=== PATIENT | female | born 1990 | race Caucasian/White ===

== ENCOUNTER 2020-11-18 18:26 | Emergency (ER) | payer SELFPAY ==
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
--- NOTE | 2020-11-18 20:54 | ER ---
Nurse's Notes [facility] Name: Fatimah Chris Age: 30 yrs Sex: Female : 1990 Arrival Date: 11/18/2020 Time: 18:30 Bed Waiting Private MD: Diagnosis: Presentation: 11/18 18:49 Chief complaint: Patient states: Lower abd cramping for 2 days. Clear liquid "leaking" ll1 from vaginal area for 1 week. Just found out she was last Thursday. + positive test, no follow-up yet. G 6, P2, AB 3. Coronavirus screen: Client denies travel out of the [place] in the last 14 days. At this time, the client does not indicate any symptoms associated with coronavirus-19. Ebola Screen: Patient denies travel to an Ebola-affected area in the 21 days before illness onset. Initial Sepsis Screen: Does the patient meet any 2 criteria? HR > 90 bpm. No. Patient's initial sepsis screen is negative. Does the patient have a suspected source of infection? No. Patient's initial sepsis screen is negative. Risk Assessment: Do you want to hurt yourself or someone else? Patient reports no desire to harm self or others. Onset of symptoms was November 17, 2020. 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 - Social history:: Smoking status: Patient/guardian denies using tobacco, Stopped _ months ago .25. Vital Signs: 18:49 BP 100 / 53; Pulse 93; Resp 16; Temp 97.6; Pulse Ox 99% ; Height 5 ft. 10 in. (177.80 ll1 cm); Pain 4/10; ED Course: 18:30 Patient arrived in ED. mr 18:54 Triage completed. ll1 18:56 Arm band placed on. ll1 20:54 Patient's name was called from ER lobby. No response. Unable to locate patient. Will bb disposition as left without being seen by a provider. Administered Medications: No medications were administered Outcome: 20:54 Patient left the ED. bb Signatures: Kristi Morris Brenda, RN RN bb David Borrego RN RN ll1
[2020-11-18 21:34] VITALS: BP 100/53; TEMP 97.6; O2SAT 99
== END 2020-11-18 20:54 | disposition left against medical advice (07) ==
LOC: ER 18:26
DX: Z53.21 Procedure and treatment not carried out due to patient leaving prior to being seen by health care provider (principal)
CPT/HCPCS: 99281

== ENCOUNTER 2020-11-19 11:13 | Emergency (ER) | payer OTHER, SELFPAY ==
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
[2020-11-19 12:04] LABS: Urine Blood Trace-lysed (Negative); Urine Glucose Negative (Negative); Urine Protein Negative (Negative); Urine Specific Gravity 1.025 (1.005-1.030)
[2020-11-19 13:13] LABS: Absolute Lymphocytes (CBC) 2.4 K/uL (0.7-4.9); Basophils % 0.4 % (0-1.3); Hematocrit 36.4 % (36.0-45.0); Lymphocytes % 23.8 % (15.3-44.8); MPV 7.9 fL (7.6-11.3); RBC Red Blood Cell Count 3.91 M/uL (3.86-4.86)
--- NOTE | 2020-11-19 13:18 | RAD REPORT ---
EXAM DESCRIPTION: US - 1St Trimest Single 1St Fetus - 11/19/2020 1:01 pm CLINICAL HISTORY: with pelvic pain COMPARISON: None. FINDINGS: A normal appearing gestational sac is present within the endometrium. Within this is a yo lk sac and pole with a crown-rump length 3.5 centimeters. Cardiac activity 178 beats per minute Neither ovary seen secondary to overlying bowel gas. . . The right and left adnexa unremarkable No significant free fluid is seen. IMPRESSION: Single live intrauterine with an estimated gestational age 10 weeks 3 days ED D 06/14/2021. If a survey is desired it should be performed in approximately 8 weeks
[2020-11-19 13:43] LABS: Urine Bacteria 20-50 /HPF (<20); Urine RBC <5 /HPF (NONE SEEN)
[2020-11-19 13:46] LABS: BUN Blood Urea Nitrogen 10 mg/dL (7-18); Bicarbonate 24 mmol/L (21-32); Glucose Level 83 mg/dL (74-106); HCG, Quantitative 41809 mIU/mL (1-3); Sodium Level 139 mmol/L (136-145)
[2020-11-19 14:09] LABS: Urine Blood Negative (Negative); Urine Glucose Negative (Negative); Urine Protein Negative (Negative); Urine Specific Gravity 1.025 (1.005-1.030); Urine pH 6.5 (5.0-7.0)
[2020-11-19 14:52] LABS: Urine Bacteria <20 /HPF (<20); Urine Mucus 1+ /HPF (NONE SEEN); Urine RBC <5 /HPF (NONE SEEN)
[2020-11-19 14:59] LABS: Urine Specific Gravity/Preg 1.025 (1.005-1.030)
--- NOTE | 2020-11-19 15:06 | EDPHYS ---
Physician Documentation [facility] Name: Fatimah Chris Age: 30 yrs Sex: Female : 1990 Arrival Date: 11/19/2020 Time: 11:16 Bed 28 Private MD: NEL Physician Reynaldo Frye HPI: 11/19 13:36 This 30 yrs old Female presents to ER via Ambulatory with complaints of pm1 Abdominal Pain - low. 13:36 The patient presents with abdominal pain suprapubic area. Onset: The symptoms/episode pm1 began/occurred 4 day(s) ago. The symptoms do not radiate. Associated signs and symptoms: Pertinent negatives: nausea, vomiting, and diarrhea, chest pain, dysuria, fever, shortness of breath, vaginal discharge. The symptoms are described as crampy. Modifying factors: The symptoms are alleviated by nothing, the symptoms are aggravated by nothing. Severity of pain: in the emergency department the pain is unchanged. The patient has not experienced similar symptoms in the past. The patient has not recently seen a physician. positive test last week with home test. 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 - Social history:: Smoking status: Patient reports the use of cigarette tobacco products, denies chronic smoking, but will smoke occasionally. ROS: 13:36 Constitutional: Negative for fever, chills, and weight loss, Cardiovascular: Negative pm1 for chest pain, palpitations, and edema, Respiratory: Negative for shortness of breath, cough, wheezing, and pleuritic chest pain. 13:36 Back: Negative for injury and pain, MS/Extremity: Negative for injury and deformity, Skin: Negative for injury, rash, and discoloration, Neuro: Negative for headache, weakness, numbness, tingling, and seizure. 13:36 Abdomen/GI: Positive for abdominal pain, of the suprapubic area, Negative for nausea, vomiting, and diarrhea, constipation. Exam: 13:36 Constitutional: This is a well developed, well nourished patient who is awake, alert, pm1 and in no acute distress. Head/Face: Normocephalic, atraumatic. 13:36 Back: No spinal tenderness. No costovertebral tenderness. Full range of motion. Skin: Warm, dry with normal turgor. Normal color with no rashes, no lesions, and no evidence of cellulitis. MS/ Extremity: Pulses equal, no cyanosis. Neurovascular intact. Full, normal range of motion. 13:36 Cardiovascular: Exam negative for acute changes, Rate: normal, Rhythm: regular, Pulses: no pulse deficits are appreciated. 13:36 Respiratory: Exam negative for acute changes, respiratory distress, shortness of breath. 13:36 Abdomen/GI: Inspection: abdomen appears normal, Palpation: abdomen is soft and non-tender, in all quadrants. 13:36 : Pelvic Exam: The exam is refused by the patient/guardian. The risks and consequences are understood by the patient. 13:36 Neuro: Orientation: is normal, Mentation: is normal, Motor: is normal, Sensation: is normal, no obvious gross deficits. Vital Signs: 11:31 Pulse 92; Resp 16; Temp 97.3; Pulse Ox 100% ; Height 5 ft. 10 in. (177.80 cm); Pain ll1 2/10; 11:31 BP 100 / 64; ll1 13:00 BP 125 / 96; Pulse 93; Resp 16; Pulse Ox 100% on R/A; zb 14:00 BP 102 / 74; Pulse 97; Resp 18; Pulse Ox 100% on R/A; zb 15:00 BP 103 / 67; Pulse 93; Resp 18; Pulse Ox 100% on R/A; zb MDM: 12:00 Patient medically screened. pm1 13:44 Data reviewed: vital signs. Data interpreted: Pulse oximetry: on room air is 100 %. pm1 Interpretation: normal. 15:04 Counseling: I had a detailed discussion with the patient and/or guardian regarding: the pm1 historical points, exam findings, and any diagnostic results supporting the discharge/admit diagnosis, lab results, radiology results, the need for outpatient follow up, an OB/Gyne specialist, to return to the emergency department if symptoms worsen or persist or if there are any questions or concerns that arise at home. 11/19 12:04 Order name: Urine Dipstick-Ancillary; Complete Time: 12:10 EDMS 11/19 12:10 Order name: Quantitative Hcg; Complete Time: 13:52 pm1 11/19 12:10 Order name: Abo/rh Typing pm1 11/19 12:10 Order name: Basic Metabolic Panel; Complete Time: 13:52 pm1 11/19 12:10 Order name: CBC with Diff; Complete Time: 13:22 pm1 11/19 12:10 Order name: Urine Microscopic Only; Complete Time: 13:52 pm1 11/19 12:10 Order name: Urine Test (obtain specimen); Complete Time: 13:24 pm1 11/19 12:32 Order name: Urine --Ancillary (enter results); Complete Time: 15:03 bd 11/19 13:01 Order name: 1St Trimest Single 1St Fetus; Complete Time: 13:22 EDMS 11/19 13:35 Order name: Diet Regular; Complete Time: 13:36 aa5 11/19 14:08 Order name: Urine Dipstick-Ancillary; Complete Time: 15:03 EDMS 11/19 14:09 Order name: Urine Microscopic Only pm1 11/19 14:09 Order name: Urine Microscopic Only; Complete Time: 15:03 EDMS 11/19 12:10 Order name: IV Saline Lock; Complete Time: 12:49 pm1 11/19 12:10 Order name: Labs collected and sent; Complete Time: 12:49 pm1 11/19 12:10 Order name: NPO; Complete Time: 12:27 pm1 11/19 12:10 Order name: Urine Dipstick-Ancillary (obtain specimen); Complete Time: 12:26 pm1 11/19 13:11 Order name: Labs - recollect needed: recollect type and screen, reband pt; Complete bd Time: 13:32 11/19 13:58 Order name: Labs - recollect needed: recollect abo/rh.; Complete Time: 14:10 bd 11/19 14:09 Order name: Urine Dipstick-Ancillary (obtain specimen); Complete Time: 14:10 pm1 Administered Medications: No medications were administered Disposition: 11/20 07:15 Co-signature as Attending Physician, Reynaldo SULLIVAN I agree with the assessment and jason plan of care. Disposition: 11/19/20 15:05 Discharged to Home. Impression: Unspecified abdominal pain. - Condition is Stable. - Discharge Instructions: Abdominal Pain During . - Medication Reconciliation Form, Thank You Letter, Antibiotic Education, Prescription Opioid Use form. - Follow up: Emergency Department; When: As needed; Reason: Worsening of condition. Follow up: Private Physician; When: 2 - 3 days; Reason: Recheck today's complaints, Continuance of care, Re-evaluation by your physician. - Problem is new. - Symptoms have improved. Signatures: Dispatcher [employer] EDMS Violet Knott Corey, MD MD cha Calderon, Audri RN RN aa5 Salinas Paniagua NP BEREAVEMENT PROGRAM COORDINATOR pm1 David Borrego RN RN ll1 Corrections: (The following items were deleted from the chart) 11/19 13:01 12:11 Transvaginal Ob+US.RAD.BRZ ordered. EDME EDME 15:19 15:05 11/19/2020 15:05 Discharged to Home. Impression: Unspecified abdominal pain. aa5 Condition is Stable. Forms are Medication Reconciliation Form, Thank You Letter, Antibiotic Education, Prescription Opioid Use. Follow up: Emergency Department; When: As needed; Reason: Worsening of condition. Follow up: Private Physician; When: 2 - 3 days; Reason: Recheck today's complaints, Continuance of care, Re-evaluation by your physician. Problem is new. Symptoms have improved. pm1
--- NOTE | 2020-11-19 15:06 | ER ---
Nurse's Notes [facility] Name: Fatimah Chris Age: 30 yrs Sex: Female : 1990 Arrival Date: 11/19/2020 Time: 11:16 Bed 28 Private MD: Diagnosis: Unspecified abdominal pain Presentation: 11/19 11:31 Chief complaint: Patient states: Had a positive test last week. Had lower abd ll1 discomfort since last week. No vaginal bleeding. + nausea., no fever. G6, P2. Came last night to be seen but the wait was too long, so she left. Coronavirus screen: Client denies travel out of the [place] in the last 14 days. At this time, the client does not indicate any symptoms associated with coronavirus-19. Ebola Screen: Patient denies travel to an Ebola-affected area in the 21 days before illness onset. Initial Sepsis Screen: Does the patient meet any 2 criteria? No. Patient's initial sepsis screen is negative. Does the patient have a suspected source of infection? No. Patient's initial sepsis screen is negative. Risk Assessment: Do you want to hurt yourself or someone else? Patient reports no desire to harm self or others. Onset of symptoms was November 15, 2020. 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 - Social history:: Smoking status: Patient reports the use of cigarette tobacco products, denies chronic smoking, but will smoke occasionally. Screenin:29 Abuse screen: Denies threats or abuse. Denies injuries from another. Nutritional zb screening: No deficits noted. Tuberculosis screening: No symptoms or risk factors identified. Fall Risk None identified. Assessment: 12:49 Reassessment: patient taken to US. zb 13:00 General: Appears in no apparent distress. comfortable, Behavior is calm, cooperative, zb appropriate for age, Reports. Pain: Complains of pain in left femoral area Pain does not radiate. Pain currently is 3 out of 10 on a pain scale. Quality of pain is described as crampy, Pain began 1 day ago. Is continuous, Also complains of nausea. Neuro: Level of Consciousness is awake, alert, obeys commands, Oriented to person, place, time, situation. Cardiovascular: Heart tones S1 S2 present Capillary refill < 3 seconds Patient's skin is warm and dry. Respiratory: Airway is patent Respiratory effort is even, unlabored, Respiratory pattern is regular, symmetrical. GI: Abdomen is round Bowel sounds present X 4 quads. Abdomen is tender to palpation in left lower quadrant Reports nausea. : Urine is clear. Derm: Skin is intact, is healthy with good turgor, Skin is normal. Musculoskeletal: Range of motion: intact in all extremities. 13:24 Reassessment: ecp at bedside. discussing care with patient. zb 13:38 Reassessment: pt provided food. verbally order okay'ed by ECP for patient to eat. zb 14:11 Reassessment: Patient appears in no apparent distress at this time. Patient and/or zb family updated on plan of care and expected duration. Pain level reassessed. Patient is alert, oriented x 3, equal unlabored respirations, skin warm/dry/pink. urine recollected and ran. ECP discussed care at bedside. 14:28 Reassessment: Lab recollected for the 3rd time due to a label smudging issue via sr5 existing PIV, new T\T\S bracelet applied. Pt remains awake, alert, denies any needs at this time. 15:10 Reassessment: d/c instructions given. family at bedside. pt up at will. states she is zb ready to go home. ECP at bedside to give d/c instructions as well. Vital Signs: 11:31 Pulse 92; Resp 16; Temp 97.3; Pulse Ox 100% ; Height 5 ft. 10 in. (177.80 cm); Pain ll1 2/10; 11:31 BP 100 / 64; ll1 13:00 BP 125 / 96; Pulse 93; Resp 16; Pulse Ox 100% on R/A; zb 14:00 BP 102 / 74; Pulse 97; Resp 18; Pulse Ox 100% on R/A; zb 15:00 BP 103 / 67; Pulse 93; Resp 18; Pulse Ox 100% on R/A; zb ED Course: 11:16 Patient arrived in ED. am2 11:21 Arm band placed on. ll1 11:33 Triage completed. ll1 12:00 Salinas Paniagua NP is PHCP. pm1 12:00 Reynaldo Frye MD is Attending Physician. pm1 12:13 Radiology exam delayed due to lab results not completed at this time. test aa4 not completed at this time. 12:26 Kandi Lozano, RN is Primary Nurse. zb 12:29 Patient has correct armband on for positive identification. Placed in gown. Bed in low zb position. Call light in reach. Side rails up X 1. Pulse ox on. NIBP on. Door closed. Noise minimized. 12:49 Inserted saline lock: 20 gauge in right antecubital area, using aseptic technique. zb Blood collected. 13:01 1St Trimest Single 1St Fetus In Process Unspecified. EDMS 15:10 No provider procedures requiring assistance completed. IV discontinued, intact, zb bleeding controlled, No redness/swelling at site. Pressure dressing applied. Administered Medications: No medications were administered Outcome: 15:05 Discharge ordered by . pm1 15:10 Discharged to home ambulatory. zb 15:10 Condition: stable 15:10 Discharge instructions given to patient, Instructed on discharge instructions, follow up and referral plans. medication usage, Demonstrated understanding of instructions, follow-up care. 15:19 Patient left the ED. aa5 Signatures: Dispatcher [employer] EDMS Sharee Malcolm aa4 Yolanda Gonzales, RN RN aa5 Salinas Paniagua NP PLASTER TENDER pm1 Ismael Lebron RN RN sr5 Sharee Ivy am2 David Borrego, RN RN ll1 Kandi Lozano RN RN zyolanda Corrections: (The following items were deleted from the chart) 11:34 11:31 Chief complaint: Patient states: Had a positive test last week. Had ll1 lower abd discomfort since last week. No vaginal bleeding. + nausea., no fever. G6, P2. ll1
[2020-11-19 15:24] VITALS: TEMP 97.3; O2SAT 100
[2020-11-19 15:26] VITALS: BP 102/74
== END 2020-11-19 15:19 | disposition home or self-care (01) ==
LOC: ER 11:13
DX: O26.891 Other specified pregnancy related conditions, first trimester (principal); Z3A.10 10 weeks gestation of pregnancy; Z91.040 Latex allergy status; Z91.048 Other nonmedicinal substance allergy status
CPT/HCPCS: 36415; 76801; 80048; 81003; 81015; 81025; 84702; 85025; 86900; 86901; 99284

== ENCOUNTER 2021-06-23 17:24 | Emergency (ER) | payer OTHER ==
--- OUTSIDE RECORDS SUMMARY | 2021-06-23 17:29 | XMS REPORT | Continuity of Care Document ---
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 certified under the CLIA thatmeet the re quirements to perform mode rate, high or waivedcomple xity tests. This kristel t is authorized for use at thePoint of Car e (POC), i.e., in patien t care settingsoperati ng under a CLIA Certificat e of Waiver, Certifi trinidad ofCompliance, o r Certificate of Accreditation. This test is only authori corrine for the duration of thedeclaration that circumstances e xist justifying theauthorizatio n of emergency use o f in vitro diagnostic test sfor detection and/o r diagnosis of CO VID-19 under Amnhozx75 4(b)(1) of the Act, 21 U.S .C. 360bbb-3(b)(1), unless theauthorizatio n is terminated or r evoked sooner. URINALYSIS W/O [id number] 13:39:00 Test Item Value Reference Range Interpretation Comments UA GLUCOSE DIPSTICK (test code = NEGATIVE NEGATIVE DGLUU) UA KETONE DIPSTICK (test code = TRACE NEGATIVE KETU) UA PROTEIN DIPSTICK (test code = 1+ NEGATIVE PROU) IS NURSE PERFORMING TEST? NCBC W/AUTO [id number] 13:36:00 Test Item Value Reference Range Interpretation Comments WHITE BLOOD CELL (test code = WBC) 14.4 K/mm3 6.5-12.3 H RED BLOOD CELL (test code = RBC) 3.07 M/mm3 3.51-4.69 L HEMOGLOBIN (test code = HGB) 9.7 g/dL 10.1-13.8 L HEMATOCRIT (test code = HCT) 28.8 % 32.5-41.8 L MEAN CELL VOLUME (test code = MCV) 93.8 fL 84.6-96.6 N MEAN CELL HGB (test code = MCH) 31.6 pg 27.3-33.9 N MEAN CELL HGB CONCETRATION (test 33.7 gm/dL 32.0-34.2 N code = MCHC) RED CELL DISTRIBUTION WIDTH (test 13.7 % 12.2-16.3 N code = RDW) PLATELET COUNT (test code = PLT) 265 K/mm3 134-363 N MEAN PLATELET VOLUME (test code = 10.1 fL 9.2-12.7 N MPV) NEUTROPHIL % (test code = NT%) 74.4 % 57.9-77.3 N LYMPHOCYTE % (test code = LY%) 16.9 % 14.5-29.7 N MONOCYTE % (test code = MO%) 5.3 % 3.6-10.2 N EOSINOPHIL % (test code = EO%) 0.6 % 0.0-3.0 N BASOPHIL % (test code = BA%) 0.6 % 0.1-0.9 N NEUTROPHIL # (test code = NT#) 10.7 K/mm3 LYMPHOCYTE # (test code = LY#) 2.4 K/mm3 MONOCYTE # (test code = MO#) 0.8 K/mm3 EOSINOPHIL # (test code = EO#) 0.09 K/mm3 BASOPHIL # (test code = BA#) 0.1 K/mm3 RBC MORPHOLOGY REQUIRED (test code NORMAL NORMAL = RBCM) PLATELET MORPHOLOGY REQUIRED (test NORMAL NORMAL code = PLTMR) URINALYSIS [id number] 16:46:00 Test Item Value Reference Range Interpretation Comments UA COLOR (test code = YELLOW YELLOW COLU) UA APPEARANCE (test CLOUDY CLEAR A code = APPU) UA GLUCOSE DIPSTICK NEGATIVE NEGATIVE (test code = DGLUU) UA BILIRUBIN DIPSTICK NEGATIVE NEGATIVE (test code = BILU) UA KETONE DIPSTICK NEGATIVE NEGATIVE (test code = KETU) UA SPECIFIC GRAVITY >= 1.030 1.001-1.035 N (test code = SGU) UA BLOOD DIPSTICK NEG NEGATIVE (test code = FLOYD) UA PH DIPSTICK (test 6.0 5-9 code = BLAZE) UA PROTEIN DIPSTICK 1+ NEGATIVE (test code = PROU) UA UROBILINIOGEN 0.2 EU/dL See_Comment [Automated message] DIPSTICK (test code = The sy stem which URO) generated this result transmit richard reference range : <=1.0. The refe rence range was not u sed to interpret th is result as normal/abnormal . UA NITRITE DIPSTICK NEGATIVE NEGATIVE (test code = JANICE) UA LEUKOCYTE ESTERASE 1+ NEGATIVE A DIPSTICK (test code = LEUU) UA WBC (test code = 21-30 #/hpf NONE SEEN A WBCU) UA RBC (test code = 3-5 #/hpf NONE SEEN A RBCU) UA EPITHELIAL CELLS RARE #/HPF RARE-FEW (test code = EPIU) UA BACTERIA (test code FEW /HPF RARE-FEW = BACU) UA MUCUS (test code = 4+ NONE SEEN MUCU) URINE SAMPLE: CLEAN CATCHURINALYSIS [id number] 23:24:00 Test Item Value Reference Range Interpretation Comments UA COLOR (test code = COLU) YELLOW YELLOW UA APPEARANCE (test code = Slightly-Cloudy CLEAR APPU) UA GLUCOSE DIPSTICK (test NEGATIVE NEG code = DGLUU) UA BILIRUBIN DIPSTICK (test NEGATIVE NEG code = BILU) UA KETONE DIPSTICK (test code NEGATIVE NEG = KETU) UA SPECIFIC GRAVITY (test 1.026 1.001-1.035 N code = SGU) UA BLOOD DIPSTICK (test code NEG NEG = FLOYD) UA PH DIPSTICK (test code = 5.0 5-9 BLAZE) UA PROTEIN DIPSTICK (test NEGATIVE NEG code = PROU) UA UROBILINIOGEN DIPSTICK NEGATIVE mg/dL NEG (test code = URO) UA NITRITE DIPSTICK (test NEG NEG code = JANICE) UA LEUKOCYTE ESTERASE 1+ NEG A DIPSTICK (test code = LEUU) UA WBC (test code = WBCU) 6-10 #/hpf NONE SEEN A UA RBC (test code = RBCU) 3-5 #/hpf NONE SEEN A UA EPITHELIAL CELLS (test FEW #/HPF RARE-FEW code = EPIU) UA BACTERIA (test code = RARE /HPF RARE-FEW BACU) UA MUCUS (test code = MUCU) 1+ NONE SEEN URINE SAMPLE: CLEAN CATCHCOMPREHENSIVE METABOLIC [id number] 21:12:00 Test Item Value Reference Range Interpretation Comments SODIUM (test code = NA) 138 mEq/L 135-145 N POTASSIUM (test code = K) 4.4 mEq/L 3.5-5.0 N CHLORIDE (test code = CL) 104 mEq/L 100-115 N CARBON DIOXIDE (test code = CO2) 24 mEq/L 22-31 N ANION GAP (test code = GAP) 14.50 10-20 N GLUCOSE (test code = GLU) 78 mg/dL 65-110 N BLOOD UREA NITROGEN (test code = 9 mg/dL 7-18 N BUN) GLOMERULAR FILTRATION RATE (test 118 ml/min >60 N code = GFR) CREATININE (test code = CREAT) 0.6 mg/dL 0.5-1.0 N TOTAL PROTEIN (test code = PROT) 6.3 gm/dL 6.3-8.2 N ALBUMIN (test code = ALB) 3.2 gm/dL 3.4-4.8 L CALCIUM (test code = CA) 8.3 mg/dL 8.4-10.2 L BILIRUBIN TOTAL (test code = BILT) 0.1 mg/dL 0.2-1.0 L SGOT/AST (test code = AST) 13 units/L 15-37 L SGPT/ALT (test code = ALT) 9 units/L 12-78 L ALKALINE PHOSPHATASE TOTAL (test 86 units/L 46-116 N code = ALKP) CBC W/AUTO [id number] 20:24:00 Test Item Value Reference Range Interpretation Comments WHITE BLOOD CELL (test code = WBC) 18.8 K/mm3 6.5-12.3 H RED BLOOD CELL (test code = RBC) 3.53 M/mm3 3.51-4.69 N HEMOGLOBIN (test code = HGB) 11.1 g/dL 10.1-13.8 N HEMATOCRIT (test code = HCT) 33.9 % 32.5-41.8 N MEAN CELL VOLUME (test code = MCV) 96.0 fL 84.6-96.6 N MEAN CELL HGB (test code = MCH) 31.4 pg 27.3-33.9 N MEAN CELL HGB CONCETRATION (test 32.7 gm/dL 32.0-34.2 N code = MCHC) RED CELL DISTRIBUTION WIDTH (test 12.9 % 12.2-16.3 N code = RDW) PLATELET COUNT (test code = PLT) 251 K/mm3 134-363 N MEAN PLATELET VOLUME (test code = 9.7 fL 9.2-12.7 N MPV) NEUTROPHIL % (test code = NT%) 79.0 % 57.9-77.3 H LYMPHOCYTE % (test code = LY%) 15.4 % 14.5-29.7 N MONOCYTE % (test code = MO%) 3.8 % 3.6-10.2 N EOSINOPHIL % (test code = EO%) 0.4 % 0.0-3.0 N BASOPHIL % (test code = BA%) 0.4 % 0.1-0.9 N NEUTROPHIL # (test code = NT#) 14.8 K/mm3 LYMPHOCYTE # (test code = LY#) 2.9 K/mm3 MONOCYTE # (test code = MO#) 0.7 K/mm3 EOSINOPHIL # (test code = EO#) 0.07 K/mm3 BASOPHIL # (test code = BA#) 0.1 K/mm3 RBC MORPHOLOGY REQUIRED (test code NORMAL NORMAL = RBCM) PLATELET MORPHOLOGY REQUIRED (test NORMAL NORMAL code = PLTMR) URINALYSIS [id number] 20:22:00 Test Item Value Reference Range Interpretation Comments UA COLOR (test code = COLU) YELLOW YELLOW UA APPEARANCE (test code = CLEAR CLEAR APPU) UA GLUCOSE DIPSTICK (test code NEGATIVE NEG = DGLUU) UA BILIRUBIN DIPSTICK (test NEGATIVE NEG code = BILU) UA KETONE DIPSTICK (test code 2+ NEG A = KETU) UA SPECIFIC GRAVITY (test code 1.019 1.001-1.035 N = SGU) UA BLOOD DIPSTICK (test code = NEG NEG FLOYD) UA PH DIPSTICK (test code = 7.0 5-9 BLAZE) UA PROTEIN DIPSTICK (test code NEGATIVE NEG = PROU) UA UROBILINIOGEN DIPSTICK NEGATIVE mg/dL NEG (test code = URO) UA NITRITE DIPSTICK (test code NEG NEG = JANICE) UA LEUKOCYTE ESTERASE DIPSTICK NEG NEG (test code = LEUU) UA WBC (test code = WBCU) 0-2 #/hpf NONE SEEN UA RBC (test code = RBCU) 0-2 #/hpf NONE SEEN UA EPITHELIAL CELLS (test code RARE #/HPF RARE-FEW = EPIU) UA MUCUS (test code = MUCU) 2+ NONE SEEN URINE SAMPLE: CLEAN CATCH- US [id number] 00:00:00 [facility] 1990 Sex: F Patient Name: MAIRA ELLIS Unit No: [id number] EXAMS: CPT CODE: [id number] [place] LTD 64034 PROCEDURE INFORMATION: Exam: US , Limited Exam date and time: 02/28/2021 8:20 PM Age: 31 years old Clinical indication: Injury or trauma; Fall; Blunt trauma;Other: PT fell on her bottom; Injury date: Today; ; Additional info: Lower ab pain, 24.6wks, recent fall. Amniotic fluid index, placenta, cervix. TECHNIQUE: Imaging protocol: Real-time ultrasound of the maternal uterus with image documentation. Exam focused on the clinical indication. COMPARISON: OT US LTD 02/04/2021 8:53 PM FINDINGS: Limited transabdominal ultrasound was performed. No transvaginal imaging. Gestation: Single intrauterine gestation heart rate: 130 bpm Placenta: Anterior grade 2 placenta is seen without previa appreciated. No placental abruption identified. Amniotic fluid index: 16.3 cm MATERNAL: Cervix: Cervix measures 4.2 cm length. Right adnexa: Maternal right ovary measures 3.5 x 2.2 x 2.6 cm containing round hypoechoic cystic appearing structure measuring 2.1 x 1.4 x 2.1 cm likely representing corpus luteum. Left adnexa: Maternal left ovary appears normal measuring 3 x 1.7 x 1.7 cm. IMPRESSION: 1. Single live intrauterine . 2. Amniotic fluid index of 16.3 cm. 3. Cervical length of 4.2 cm. Electronically Signed by Mao Schmidt MD on 0 02/28/2021 at 2100 Reported and signed by: Mao Schmidt MD CC: Vaibhav Shelby III, MD; Douglas Zimmer Technologist: Paige Betancourt RDMS, RVT Probe: Trnscrbd D/ (2099) GCD.CPS Orig Print D/T: S: 02/28/2021 (2100) [facility] NAME: MAIRA ELLIS Radiology Department PHYS: Vaibhav Arora III, MD [address] : 1990 AGE: 31 SEX: F [place] [address] LOC: Katt.VICENTE PHONE #: [phone] EXAM DATE: 02/28/2021 STATUS: REG ER FAX #: [phone] RAD NO: Page 1 Signed Report Patient Name: MAIRA ELLIS Unit No: [id number] EXAMS: CPT CODE: [id number] LTD 04893 <Continued> [facility] NAME: MAIRA ELLIS Radiology Department PHYS: Vaibhav Arora III, MD [address] : 1990 AGE: 31SEX: F [place] [address] LOC: Katt.VICENTE PHONE #: [phone] EXAM DATE: 02/28/2021 STATUS: REG ER FAX #: [phone] RAD NO: Page 2 Signed ReportURINALYSIS [id number] 20:02:00 Test Item Value Reference Range Interpretation Comments UA COLOR (test code = COLU) YELLOW YELLOW UA APPEARANCE (test code = Slightly-Cloudy CLEAR APPU) UA GLUCOSE DIPSTICK (test NEGATIVE NEG code = DGLUU) UA BILIRUBIN DIPSTICK (test NEGATIVE NEG code = BILU) UA KETONE DIPSTICK (test code NEGATIVE NEG = KETU) UA SPECIFIC GRAVITY (test 1.026 1.001-1.035 N code = SGU) UA BLOOD DIPSTICK (test code NEG NEG = FLOYD) UA PH DIPSTICK (test code = 5.0 5-9 BLAZE) UA PROTEIN DIPSTICK (test NEGATIVE NEG code = PROU) UA UROBILINIOGEN DIPSTICK NEGATIVE mg/dL NEG (test code = URO) UA NITRITE DIPSTICK (test NEG NEG code = JANICE) UA LEUKOCYTE ESTERASE 3+ NEG A DIPSTICK (test code = LEUU) UA WBC (test code = WBCU) 6-10 #/hpf NONE SEEN A UA RBC (test code = RBCU) 0-2 #/hpf NONE SEEN UA EPITHELIAL CELLS (test FEW #/HPF RARE-FEW code = EPIU) UA BACTERIA (test code = RARE /HPF RARE-FEW BACU) UA MUCUS (test code = MUCU) 1+ NONE SEEN URINE SAMPLE: CLEAN CATCH- US [id number] 00:00:00 [facility] 1990 Sex: F Patient Name: MAIRA ELLIS Unit No: [id number] EXAMS: CPT CODE: [id number] [place] LTD [address]109 PROCEDURE INFORMATION: Exam: US , Limited Exam date and time: 02/04/2021 8:53 PM Age: 31 years old Clinical indication: Lmp or gestational age (in weeks): 21.6; Antepartum complications; Premature rupture of membranes; ; Additional info: Saundra TECHNIQUE: Imaging protocol: Real-time ultrasound of the maternal uterus with image doc umentation. Exam focused on the clinical indication. COMPARISON: No relevant prior studies available. FINDINGS: Gestation: Intrauterine gestation. presentation: There is a single live intrauterine gestation in variable presentation. heart rate: The heart rate is150 bpm. Placenta: There is a grade 1 anterior placenta. There is no placenta previa or placental abruption. Amniotic fluid: The amniotic fluid appears subjectively normal with a single deep vertical pocket measuring 6.3 cm. MATERNAL: Cervix: The uterine cervix is closed and the cervical length is 3.4 cm. Other findings: The right maternal ovary is obscured due to shadowing. The left maternal ovary is obscured due to shadowing. IMPRESSION: 1. There is a single liveintrauterine gestation in variable presentation. 2. There is a grade 1 anterior placenta. There is no placenta previa or placental abruption. 3. The amniotic fluid appears subjectively normal with a single deep vertical pocket measuring 6.3 cm. 4. The uterine cervix is closed and the cervical length is 3.4 cm. at 2127 Reported and signed by: Tamir Oliveira DO CC: Vaibhav Shelby III, MD; Douglas Zimmer Technologist: Denice Mitchell RDMS RVLupe Probe: Trnscrbd D/ (2126) D[facility] NAME: MAIRA ELLIS Radiology Department PHYS: Vaibhav Arora III, MD [address] : 1990 AGE: 31 SEX: F [place] [address] LOC: ChuckVICENTE PHONE #: [phone] EXAM DATE:02/04/2021 STATUS: REG ER FAX #: [phone] RAD NO: Page 1 Signed Report Patient Name: MAIRA ELLIS Unit No: [id number] EXAMS: CPT CODE: [id number] LTD 57153 <Continued> [facility] NAME: ANTONIO ELLISMICHELLE Mendez Radiology Department PHYS: Vaibhav Arora III, MD [address] : 1990 AGE: 31 SEX: F [place] [address] LOC: ChuckVICENTE PHONE #: [phone] EXAM DATE: 02/04/2021 STATUS: REGER FAX #: [phone] RAD NO: Page 2 Signed ReportECG 12 [id number] 18:50:32 Test Item Value Reference Range Interpretation Comments Ventricular rate (test code = 253) Atrial rate (test code = 255) SC interval (test code = 266) QRSD interval (test code = 260) QT interval (test code = 264) QTC interval (test code = 265) P axis 1 (test code = 267) QRS axis 1 (test code = 268) T wave axis (test code = 270) EKG impression (test Sinus rhythm with code = 273) short SC-Otherwise normal ECG-No previous ECGs available-Electronica lly Signed By Jeramie Nina MD ([id number]) on 07/30/2020 12:50:32 PM [facility] [id number] 16:43:49 Test Item Value Reference Range Interpretation Comments Urine culture Mixed lyric Specimen isolate (test 10-4 col/cc InformationSpe cimen code = 44150-9) Source: Urin eSpecimen Site: Clean cat [facility] ED Preliminary Interpretation - Not an [id number] 12:04:21Alysha Lucas MD 07/29/2020 7:57 [facility] ED Preliminary Interpretation - Not an OrderPerformed by: Alysha Lucas MDAuthorized by: Alysha Lucas MD ECG reviewed by ED Physician in the absence of a electronic organ technician: yes Previous ECG: Previous ECG: UnavailableInterpretation: Interpretation: normal Rate: ECG rate: 88 ECG rate assessment: normal Rhythm: Rhythm: sinus rhythm Ectopy: Ectopy: none QRS: QRS axis: NormalConduction: Conduction: normal ST segments: ST segments: NormalT waves: T waves: [facility] 2020-05-11 15:53:00Amber *ABN*(05/11/20 10:53 AM)[facility] AND STOOL 2020-05-11 15:53:00Cloudy *ABN*(05/11/20 10:53 AM)[facility] AND [id number] 15:53:00 Test Item Value Reference Range Interpretation Comments POC UA SG (test code = POC UA SG) 1.025 1 [facility] AND [id number] 15:53:00 Test Item Value Reference Range Interpretation Comments POC UA pH (test code = POC UA pH) 5.5 1 5.0-8.0 [facility] [id number] 15:53:00Negative *NA*(05/11/20 10:53 AM)[facility] [id number] 15:53:00Small *ABN*(05/11/20 10:53 AM)[facility] [id number] 15:53:000.2[facility] [id number] 15:53:00Positive *ABN*(05/11/20 10:53 AM)[facility] URINE AND [id number] 15:53:00Small *ABN*(05/11/20 10:53 AM)[facility] URINE AND [id number] 15:53:00Amber *ABN*(05/11/20 10:53 AM)[facility] URINE AND [id number] 15:53:00Cloudy *ABN*(05/11/20 10:53 AM)[facility] [id number] 15:53:00 Test Item Value Reference Range Interpretation Comments POC UA SG (test code = POC UA SG) 1.025 1 [facility] [id number] 15:53:00 Test Item Value Reference Range Interpretation Comments POC UA pH (test code = POC UA pH) 5.5 1 5.0-8.0 [facility] [id number] 15:53:00Negative *NA*(05/11/20 10:53 AM)[facility] [id number] 15:53:00Small *ABN*(05/11/20 10:53 AM)[facility] [id number] 15:53:000.2[facility] [id number] 15:53:00Positive *ABN*(05/11/20 10:53 AM)[facility] URINE AND [id number] 15:53:00Small *ABN*(05/11/20 10:53 AM)[facility] Chemistry - [id number] 11:16:00 Test Item Value Reference Range Interpretation Comments Chemistry - Specials Negative NEGATIVE Method of sensitivity- (test code = BHCGST) Indete rminant: results should be repeated after 48-72 hrs Positive: results may be detected as ear ly as 1 day after the first missed menses. Laboratory [id number] 10:40:00[facility] [id number] 09:24:001.1[facility] [id number] 09:24:008[facility] [id number] 09:24:0011.6 [facility] [id number] 09:24:003.4[facility]ann[facility] PANEL 2014-11-02 09:24:0091[facility]ann[facility] [id number] 09:24:0081[facility] [id number] 09:24:0016[facility]annCHE[facility] [id number] 09:24:000.2[facility] [id number] 09:24:99862Uemjbizg HermannCHEM [id number] 09:24:003.6[facility]annCHE[facility] [id number] 09:24:003.8 [facility] [id number] 09:24:007.2[facility]annCHEM PANEL 2014-11-02 09:24:008.9[facility]annCHE[facility] [id number] 09:24:0025[facility]annCHEM [id number] 09:24:0010[facility]annCHEM [id number] 09:24:007[facility]annCHE[facility] [id number] 09:24:0085[facility]annCHE[facility] [id number] 09:24:30534Hrucfqap HermannCHEM [id number] 09:24:000.9 Memorial VlzudavWPCJLDSLWR9354-94-07 09:24:000.0[facility]annHEMATOLOGY 2014-11-02 09:24:000.1[facility] CvvjeraIWSJIFREBZ1237-95-08 09:24:002.8[facility] KrqtqvwXIVKFRDAJT6461-52-91 09:24:000.5[facility] EfdvotqSWZSAEYAGL9986-22-24 09:24:000.6[facility] PjckchhQVFREGCQGR0566-60-97 09:24:009.1[facility] [id number] 09:24:000.3[facility] KtyidymDRYYVXZWLX1280-02-16 09:24:004.0 Memorial QmienygVLWAPCUHZN3675-71-19 09:24:0072.4[facility] HermannHEMATOLOGY 2014-11-02 09:24:0022.7[facility]orial TnzsjqxQVXLHVBXKD3959-56-65 09:24:0039.6[facility] NtxslqwLYYOKPYXFI1987-16-74 09:24:0013.2[facility] UwxgjxdFVIMCXDJAA7600-32-95 09:24:004.09[facility] QnogmzpTIMBSUHLWX1315-60-11 09:24:0012.5[facility] [id number] 09:24:0033.3[facility] RohrzipLBYHRGGBSB3049-12-13 09:24:00 96.8Memorial OlsuedhRQVECPFRTL2873-29-34 09:24:07769Orasjftn HermannHEMATOLOGY 2014-11-02 09:24:0014.1[facility]orial SvohqxeFOPREHKYNB6057-49-69 09:24:00 Test Item Value Reference Range Interpretation Comments MCH (test code = MCH) 32.3 pg 27.0-31.0 Memorial EnvvknvPWRFQSMGTI8292-50-46 09:24:008.2[facility] HermannIMMUNOLOGY 2014-11-02 09:24:00Negative (11/02/14 4:24 AM)[facility] JyabsriZRPMTUYAUA2257-67-35 09:24:00Negative *NA*(11/02/14 4:24 AM)[facility] [id number] 09:24:00Negative *NA*(11/02/14 4:24 AM)[facility] [id number] 09:24:00Negative (11/02/14 4:24 AM)[facility] [id number] 09:24:00Yellow *NA*(11/02/14 4:24 AM)[facility] [id number] 09:24:007.0[facility] [id number] 09:24:001.022[facility] [id number] 09:24:00Slight *ABN*(11/02/14 4:24 AM)[facility] [id number] 09:24:00Negative (11/02/14 4:24 AM)[facility] [id number] 09:24:002.0[facility] STOOL 2014-11-02 09:24:00Negative (11/02/14 4:24 AM)[facility] [id number] 09:24:00Negative (11/02/14 4:24 AM)[facility] [id number] 09:24:00Negative *NA*(11/02/14 4:24 AM)[facility] [id number] 09:24:00Negative (11/02/14 4:24 AM)[facility] [id number] 09:24:00Yellow *NA*(11/02/14 4:24 AM)[facility] [id number] 09:24:007.0[facility] [id number] 09:24:001.022[facility] [id number] 09:24:00Slight *ABN*(11/02/14 4:24 AM)[facility] [id number] 09:24:00Negative (11/02/14 4:24 AM)[facility] [id number] 09:24:002.0[facility] STOOL 2014-11-02 09:24:00Negative (11/02/14 4:24 AM)[facility] [id number] 09:24:00Negative (4/9/15 4:24 AM)[facility]annCHEM [id number] 09:24:00 1.1[facility]annCHEM [id number] 09:24:008[facility]annCHEM PANEL 2014-11-02 09:24:0011.6[facility]annCHE[facility] [id number] 09:24:003.4[facility]annCHEM [id number] 09:24:0091[facility]annCHE[facility] [id number] 09:24:0081[facility]annCHE[facility] [id number] 09:24:0016[facility]annCHEM [id number] 09:24:000.2[facility]annCHE[facility] [id number] 09:24:61106 [facility]annCHE[facility] [id number] 09:24:003.6[facility]annCHEM PANEL 2014-11-02 09:24:003.8[facility]annCHEM [id number] 09:24:007.2[facility]annCHE[facility] RRUDR5153-25-00 09:24:008.9[facility]annCHEM [id number] 09:24:0025[facility]annCHE[facility] [id number] 09:24:0010[facility]annCHE[facility] [id number] 09:24:007[facility] HermannCHEM [id number] 09:24:0085[facility] HermannCHEM MRIAN9747-44-13 09:24:34535Aomtoymj HermannCHEM XMJFX8151-97-09 09:24:000.9[facility] KrzwgjaYTEOFQNPBH6883-19-99 09:24:000.0[facility] MYLQLHOHSK1719-67-15 09:24:000.1[facility] KggnmhkKOQNVYPMFQ3825-31-72 09:24:002.8 [facility] EcnnjwrHUWRZJBWVT0445-20-44 09:24:000.5[facility] HermannHEMATOLOGY 2014-11-02 09:24:000.6[facility] GxlmbucPCBWGJDVKQ4572-09-49 09:24:009.1[facility] LpxgrcuFQPIFOMVRM7030-50-15 09:24:000.3[facility] LwrhwgcRDVUOERTGT1049-34-76 09:24:004.0[facility] UjhwqnsMFLYBTXLLE6359-73-24 09:24:0072.4[facility] ZKAVEEBIIE4997-57-07 09:24:0022.7[facility] DgghihfUUTUUJELHW7825-02-13 09:24:00 39.6[facility] XfzsedfGXKVYKNBAU5530-17-85 09:24:0013.2[facility] HermannHEMATOLOGY 2014-11-02 09:24:004.09[facility] SvbyqedVJIPWWHBIT0633-75-38 09:24:0012.5[facility] CwjthxnZALISEWKIT7885-34-69 09:24:0033.3[facility] NyjpddoGRWNCTAWVX1248-65-65 09:24:0096.8[facility] ZrlmeqmBIPMETCWHT2452-94-65 09:24:78504Emccmequ Andreas XFNYLXCUBD8655-64-37 09:24:0014.1[facility] LvpwrluKIHHJOGRIV3612-26-06 09:24:00 Test Item Value Reference Range Interpretation Comments MCH (test code = MCH) 32.3 pg 27.0-31.0 [facility] OvxlpawWGDOCONRPI7509-63-20 09:24:008.2[facility] HermannIMMUNOLOGY 2014-11-02 09:24:00Negative (11/02/14 4:24 AM)[facility] UpmtcqgZBDJCTGQSO3760-97-04 09:24:00Negative *NA*(11/02/14 4:24 AM)[facility]
--- NOTE | 2021-06-23 18:01 | ER ---
Nurse's Notes [facility] Name: Fatimah Chris Age: 31 yrs Sex: Female : 1990 Arrival Date: 06/23/2021 Time: 17:26 Bed 17 Private MD: Diagnosis: Local infection of the skin and subcutaneous tissue, unspecified-surgical incision Presentation: 06/23 17:42 Chief complaint: Patient states: I had a on the and it's infected. There iw is an odor and pus coming out. Coronavirus screen: Vaccine status: Patient reports being unvaccinated. Ebola Screen: Patient negative for fever greater than or equal to 101.5 degrees Fahrenheit, and additional compatible Ebola Virus Disease symptoms Patient denies exposure to infectious person. Patient denies travel to an Ebola-affected area in the 21 days before illness onset. No symptoms or risks identified at this time. Initial Sepsis Screen: Does the patient meet any 2 criteria? No. Patient's initial sepsis screen is negative. Does the patient have a suspected source of infection? No. Patient's initial sepsis screen is negative. Risk Assessment: Do you want to hurt yourself or someone else? Patient reports no desire to harm self or others. Onset of symptoms was June 23, 2021. 17:42 Method Of Arrival: Ambulatory iw 17:42 Acuity: BRUNA 3 iw Triage Assessment: 17:40 General: Appears in no apparent distress. comfortable, Behavior is calm, cooperative. iw Pain: Complains of pain in suprapubic area Pain currently is 5 out of 10 on a pain scale. 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 - Social history:: Smoking status: Patient denies any tobacco usage or history of. Screenin:14 Abuse screen: Denies threats or abuse. Nutritional screening: No deficits noted. sl2 Tuberculosis screening: No symptoms or risk factors identified. 18:23 Fall Risk None identified. sl2 Assessment: 18:14 General: Appears in no apparent distress. well groomed, well developed, Behavior is sl2 calm, cooperative, appropriate for age. Pain: Denies pain. Derm: Abscess located on abdomen and suprapubic area Reports. Vital Signs: 17:42 BP 146 / 80; Pulse 82; Resp 18; Temp 97.3; Pulse Ox 99% ; Weight 86.18 kg; Height 5 ft. iw 10 in. (177.80 cm); Pain 5/10; 17:42 Body Mass Index 27.26 (86.18 kg, 177.80 cm) iw ED Course: 17:26 Patient arrived in ED. as 17:43 Triage completed. iw 17:43 Arm band placed on left wrist. iw 17:46 Maria Guadalupe Rock FNP-C is PHCP. kb 17:47 Ronna Jacome MD is Attending Physician. kb 18:00 Jackie Humphries RN is Primary Nurse. sl2 18:00 Wound culture swab sent to lab. sl2 18:12 Wound Culture Sent. sl2 18:14 Patient has correct armband on for positive identification. sl2 18:14 No provider procedures requiring assistance completed. sl2 18:23 Patient did not have IV access during this emergency room visit. sl2 Administered Medications: 17:58 Drug: Augmentin (Amoxicillin-Clavulanate) 875 mg Route: PO; sl2 Outcome: 18:00 Discharge ordered by . kb 18:22 Discharged to home ambulatory. sl2 18:22 Condition: stable 18:22 Discharge instructions given to patient, Instructed on discharge instructions, follow up and referral plans. medication usage, Demonstrated understanding of instructions, follow-up care, medications, Prescriptions given X 2. 18:24 Patient left the ED. sl2 Addendum: 06/26/2021 09:11 Addendum: Culture Results: Positive wound culture. Bacteria is resistant to, has s s intermediate sensitivity, or is not tested against prescribed antibiotics. Report given to JESSICA for further evaluation and then to it architect for follow up with patient. 06/29/2021 12:27 Addendum: Other No answer. Unable to leave VM. Given to ED director to send certified s s letter to address on file. 12:37 Addendum: Other Pt called back. States that her wound is healing up well and plans to s s follow up with PCP. Signatures: Maria Guadalupe Rock FNP-C FNP-Luann Wrener Irene, RN RN iw Mary Grace Roth, RN RN ss Jackie Humphries RN RN sl2
--- NOTE | 2021-06-23 18:01 | EDPHYS ---
Physician Documentation [facility] Name: Fatimah Chris Age: 31 yrs Sex: Female : 1990 Arrival Date: 06/23/2021 Time: 17:26 Bed 17 Private MD: ED Physician Ronna Jacome HPI: 06/23 17:57 This 31 yrs old Female presents to ER via Ambulatory with complaints of Incisional kb Drainage - csec 06/07. 17:57 Patient presents to ED for recheck of: surgical incision. The affected area is on the kb suprapubic area. Previous treatment: the care was rendered at [facility]. Progress: The patient reports excellent improvement in the affected area. There has been resolution, improvement, or non-development of any drainage, fever, pain, redness or swelling. The patient has not experienced similar symptoms in the past. The patient has been recently seen by a physician:. Pt reports she had a on 06/07/21 at [facility]. States it became red, painful and started draining today. 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 - Social history:: Smoking status: Patient denies any tobacco usage or history of. ROS: 17:55 Constitutional: Negative for fever, chills, and weight loss. kb 17:55 Skin: Positive for erythema, of the suprapubic area, drainage and tenderness to incision. 17:55 All other systems are negative. Exam: 17:56 Constitutional: This is a well developed, well nourished patient who is awake, alert, kb and in no acute distress. Head/Face: Normocephalic, atraumatic. ENT: Moist Mucous membranes Cardiovascular: Regular rate and rhythm with a normal S1 and S2. No gallops, murmurs, or rubs. No pulse deficits. Respiratory: Respirations even and unlabored. No increased work of breathing, no retractions or nasal flaring. Abdomen/GI: Soft, non-tender. No distention MS/ Extremity: Pulses equal, no cyanosis. Neurovascular intact. Full, normal range of motion. Neuro: Awake and alert, GCS 15, oriented to person, place, time, and situation. Moves all extremities. Normal gait. Psych: Awake, alert, with orientation to person, place and time. Behavior, mood, and affect are within normal limits. 17:56 Skin: erythema, tenderness, purulent drainage to incision site. Vital Signs: 17:42 BP 146 / 80; Pulse 82; Resp 18; Temp 97.3; Pulse Ox 99% ; Weight 86.18 kg; Height 5 ft. iw 10 in. (177.80 cm); Pain 5/10; 17:42 Body Mass Index 27.26 (86.18 kg, 177.80 cm) iw MDM: 17:47 Patient medically screened. kb 17:53 Data reviewed: vital signs, nurses notes. Data interpreted: Pulse oximetry: on room air kb is 99 %. Interpretation: normal. Counseling: I had a detailed discussion with the patient and/or guardian regarding: the historical points, exam findings, and any diagnostic results supporting the discharge/admit diagnosis, the need for outpatient follow up, an OB/Gyne specialist, to return to the emergency department if symptoms worsen or persist or if there are any questions or concerns that arise at home. ED course: No peritoneal signs, no abd tenderness, no fever, n/v/d. Erythema, tenderness and drainage to incision site only. Discussed case with ERP, recommends oral and topical antibiotics and follow up with OB. Discussed with pt and she is in agreement. Pt will call OB tomorrow morning for follow up. 06/23 17:53 Order name: Wound Culture kb Administered Medications: 17:58 Drug: Augmentin (Amoxicillin-Clavulanate) 875 mg Route: PO; sl2 Disposition: 06/24 09:22 Co-signature as Attending Physician, Ronna Jacome MD I agree with the assessment and sp3 plan of care. Disposition Summary: 06/23/21 18:00 Discharge Ordered Location: Home kb Condition: Stable kb Diagnosis - Local infection of the skin and subcutaneous tissue, unspecified - surgical incisionkb Followup: kb - With: Emergency Department - When: As needed - Reason: Worsening of condition Followup: kb - With: Private Physician - When: 2 - 3 days - Reason: Recheck today's complaints, Continuance of care, Re-evaluation by your physician Discharge Instructions: - Discharge Summary Sheet kb - Wound Infection, Hunu-mo-Djuz kb Forms: - Medication Reconciliation Form kb - Thank You Letter kb - Antibiotic Education kb - Prescription Opioid Use kb Prescriptions: - mupirocin 2 % Topical ointment - apply 1 application by TOPICAL route 3 times per day for 10 days; 1 tube; kb Refills: 0, Product Selection Permitted - Augmentin 875-125 mg Oral Tablet - take 1 tablet by ORAL route every 12 hours for 10 days; 20 tablet; Refills: 0, kb Product Selection Permitted Signatures: Dispatcher [employer] EDMaria Guadalupe Smith, GRACE-C GRACE-Sudha Leon, CHARAN RN iw Ronna Jacome MD MD sp3 Jackie Humphries RN RN sl2
[2021-06-23] MEDS ORDERED: AMOX/K CLAV 875 MG TAB ONE (18:03)
[2021-06-23 18:30] VITALS: BP 146/80; TEMP 97.3; O2SAT 99
== END 2021-06-23 18:24 | disposition home or self-care (01) ==
LOC: ER 17:24
DX: O86.01 Infection of obstetric surgical wound, superficial incisional site (principal); Z91.040 Latex allergy status; Z91.048 Other nonmedicinal substance allergy status
CPT/HCPCS: 87070; 87077; 87186; 87205; 99283